=== PATIENT | female | born 1975 | race Caucasian/White ===

== ENCOUNTER 2021-11-04 18:11 | Emergency (ER) | payer OTHER ==
[2021-11-04 19:26] LABS: HEMOGLOBIN 11.3 gm/dl (12.3-15.3); RED BLOOD COUNT 4.34 M/UL (4.00-5.10); WHITE BLOOD COUNT 19.8 K/UL (4.5-11.0)
[2021-11-04 21:04] LABS: BUN/CREATININE RATIO 15 (0-10)
== END 2021-11-05 08:30 | disposition short-term general hospital (02) ==
LOC: ER1 18:11
PROVIDERS: Physician Assistant
DX: S90.821A Blister (nonthermal), right foot, initial encounter (principal); M79.674 Pain in right toe(s); F17.210 Nicotine dependence, cigarettes, uncomplicated; E78.5 Hyperlipidemia, unspecified; I25.2 Old myocardial infarction; Z88.0 Allergy status to penicillin; Z88.5 Allergy status to narcotic agent; Z20.822 Contact with and (suspected) exposure to COVID-19; X58.XXXA Exposure to other specified factors, initial encounter
CPT/HCPCS: 80053; 82550; 82553; 83605; 83880; 84484; 85025; 85610; 85652; 85730; 86140; 93926; 93971; 96374; 96375; 96376; 99284; J1644; J2270; J2405; U0002

== ENCOUNTER → 2022-01-02 | Outpatient (CLI) | payer OTHER | LOC: NM 01-01 09:30 | DX: I25.10 Atherosclerotic heart disease of native coronary artery without angina pectoris (principal); I50.9 Heart failure, unspecified; R06.02 Shortness of breath; I08.1 Rheumatic disorders of both mitral and tricuspid valves | CPT/HCPCS: 78452; 93017; A9502; J2785 ==